=== PATIENT | male | born 1940 | race Caucasian/White ===

== ENCOUNTER 2017-08-01 16:36 | Observation (INO) ==
[2017-08-01] MEDS ORDERED: NS 1,000 ML IV ONE (16:56)
--- NOTE | 2017-08-01 17:02 | PROVIDER DOCUMENTATION ---
HPI-Abdominal Pain/GI Problem - General Chief Complaint: Nausea/Vomiting Stated Complaint: VOMITING AND FEVER CHEMO STARTED Time Seen by Provider: 08/01/17 16:41 Source: patient, family Allergies/Adverse Reactions: Patient Allergies Allergy/AdvReac Type Severity Reaction Status Date / Time No Known Allergies Allergy Verified 08/01/17 16:41 Home Medications: Home Medication List Medication Instructions Recorded Confirmed Last Taken Type Amlodipine Besylate/Benazepril 1 cap PO DAILY 10/07/15 10/07/15 10/07/15 History [Amlodipine-Benazepril 5-20 mg] Aspirin [Ecotrin] 81 mg PO DAILY 10/07/15 10/07/15 10/07/15 History BENAZEpril [Lotensin] 20 mg PO DAILY 10/07/15 10/07/15 10/07/15 History Glimepiride 4 mg PO DAILY 10/07/15 10/07/15 10/07/15 History Hydrochlorothiazide 12.5 mg PO DAILY 10/07/15 10/07/15 10/07/15 History Metformin [Glucophage] 500 mg PO BID 10/07/15 10/07/15 10/07/15 History Nortriptyline [Pamelor] 25 mg PO QHS 10/07/15 10/07/15 10/06/15 History Pantoprazole [Protonix] 40 mg PO DAILY 10/07/15 10/07/15 10/07/15 History Pioglitazone [Actos] 15 mg PO DAILY 10/07/15 10/07/15 10/07/15 History Simvastatin [Zocor] 20 mg PO DAILY 10/07/15 10/07/15 10/07/15 History Insulin Glargine [Lantus] 40 unit SUBQ QHS #0 insuln.pen 10/09/15 Unknown Rx Tramadol [Ultram] 50 mg PO Q6H PRN PRN #0 tablet 10/09/15 Unknown Rx - History of Present Illness-ABD Nature of Presenting Problems: patient is a 76 yo M that presents to the ER abdominal pain, fever/chills, n/v, and constipation for a few days. recent started chemo 3 days ago. unable to keep anything down. no diarrhea or cough. Abdominal Pain Onset Location: reports: generalized abdomen Quality of Pain: reports: aching, cramping Severity in ED: reports: moderate Onset/Duration: reports: abrupt, 3 days ago Timing: reports: still present, constant Activities at Onset: reports: other (CHEMO) Modifying Factors: improves with: nothing Associated Symptoms: reports: constipation, fever/chills, nausea, vomiting, weakness. denies: cough, diarrhea, EENT symptoms, genitourinary problems, shortness of breath Last BM: this morning Rectal Bleeding: reports: none Rectal Pain: reports: none Similar Symptoms Previously?: No Recently seen or treated by another doctor?: Yes Review of Systems - Adult - REVIEW OF SYSTEMS - ADULT Constitutional: reports: fever. denies: chills Eyes: denies: decreased vision, double vision Ears, Nose, Mouth & Throat: denies: ear discharge, ear pain, sinus problem, throat pain, throat swelling Cardiovascular: denies: chest pain, palpitations Respiratory: denies: cough, shortness of breath, wheezing Gastrointestinal: reports: abdominal pain, constipation, nausea, poor appetite, vomiting. denies: diarrhea, rectal bleeding Genitourinary: denies: dysuria, frequency, hematuria Musculoskeletal: reports: muscle weakness. denies: muscle aches Integumentary: reports: no symptoms reported Neurological: reports: no symptoms reported Psychiatric: reports: no symptoms reported Endocrine: reports: no symptoms reported Hematologic/Lymphatic: reports: no symptoms reported Allergic/Immunologic: reports: no symptoms reported All Other Systems: Reviewed and Negative Past History - Adult - PAST MEDICAL HISTORY-ADULT Review of Records: reports: Old Records Reviewed, Nursing Assessment Review, Medications Reviewed Cardiovascular: reports: HTN, hyperlipidemia Respiratory: reports: cancer (LUNG) Gastrointestinal: reports: GERD Endocrine/Immune: reports: Diabetes Other Conditions: reports: other cancer (skin) - PRIOR SURGERIES/PROCEDURES Surgical/Procedure History: reports: other (prostectomy, lobectomy) - IMMUNIZATION STATUS Childhood Immunizations: See Nurse Assessment Flu Vaccine: See Nurse Assessment - FAMILY HISTORY Family History: reviewed, not pertinent - SOCIAL HISTORY Smoking: quit greater than 1 year, cigarettes Living Situation: family Physical Exam-General - PHYSICAL EXAM-ADULT Initial Vital Signs Reviewed: Yes - CONSTITUTIONAL General Appearance: alert, no apparent distress - EYES Eyes: PERRL/EOMI, pink conjunctivae - HEAD, EARS, NOSE, MOUTH & THROAT HENMT: normocephalic/atraumatic, normal ENT inspection, TMs normal, other (dry oral mucosa) - NECK Neck: full range of motion, normal inspection - RESPIRATORY Respiratory: lungs clear, normal breath sounds, no respiratory distress, no accessory muscle use - CARDIOVASCULAR Cardiovascular: regular rate, rhythm, no gallop, no murmur - GASTROINTESTINAL (ABDOMEN) Abdominal Exam: normal bowel sounds, non tender, soft, no organomegaly, no pulsatile mass - MUSCULOSKELETAL Back Exam: no CVA tenderness, no vertebral tenderness Extremity: normal range of motion, normal inspection, no pedal edema - SKIN Integumentary: normal color, warm/dry - NEUROLOGIC Neurologic: grossly normal, no motor/sensory deficits - PSYCHIATRIC Psych/Mental Status: normal mood/affect, normal thought content, normal thought process, oriented x 3 Progress - PLAN OF CARE/RESULTS Progress/Plan/Lab Results: Vital Signs - 8 hr 08/01/17 16:38 Temperature 99.4 F Pulse Rate 98 H Respiratory Rate 20 Blood Pressure 151/087 O2 Sat by Pulse Oximetry 90 L Orders Category Date Time Status Saline Loc NOW Care 08/01/17 16:41 Active CHEST-2 VIEWS [RAD] Stat Exams 08/01/17 16:41 Ordered US ABDOMEN-COMPLETE [US] Stat Exams 08/01/17 16:56 Ordered AMYLASE [CHEM] Stat Lab 08/01/17 16:46 Ordered BLOOD CULTURE [BLDCUL] Stat Lab 08/01/17 16:41 Ordered CBC WITH DIFF [HEME] Stat Lab 08/01/17 16:41 Ordered COMPREHENSIVE METABOLIC PANEL [CHEM] Stat Lab 08/01/17 16:41 Ordered LACTATE, PLASMA [CHEM] Stat Lab 08/01/17 16:41 Ordered LIPASE [CHEM] Stat Lab 08/01/17 16:46 Ordered 0.9% Sodium Chloride Inj [Ns] 1,000 ml Med 08/01/17 16:56 Ordered IV 999 mls/hr Pulse Oximetry Stat Oth 08/01/17 16:41 Active Vital Signs - 24 hr 08/01/17 16:38 Temperature 99.4 F Pulse Rate 98 H Respiratory Rate 20 Blood Pressure 151/087 O2 Sat by Pulse Oximetry 90 L Orders Category Date Time Status Saline Loc NOW Care 08/01/17 16:41 Active CHEST-2 VIEWS [RAD] Stat Exams 08/01/17 16:41 Completed US ABDOMEN-COMPLETE [US] Stat Exams 08/01/17 16:56 Ordered AMYLASE [CHEM] Stat Lab 08/01/17 17:00 Completed BLOOD CULTURE [BLDCUL] Stat Lab 08/01/17 16:41 Ordered CBC WITH DIFF [HEME] Stat Lab 08/01/17 17:00 Completed COMPREHENSIVE METABOLIC PANEL [CHEM] Stat Lab 08/01/17 17:00 Completed LACTATE, PLASMA [CHEM] Stat Lab 08/01/17 17:17 Received LIPASE [CHEM] Stat Lab 08/01/17 17:00 Completed 0.9% Sodium Chloride Inj [Ns] 1,000 ml Med 08/01/17 17:15 Discontinued .ROUTE As Directed 0.9% Sodium Chloride Inj [Ns] 1,000 ml Med 08/01/17 16:56 Active IV 999 mls/hr Pulse Oximetry Stat Oth 08/01/17 16:41 Active Laboratory Tests 08/01/17 08/01/17 08/01/17 17:00 17:00 17:00 WBC 7.92 RBC 4.44 L Hgb 11.6 L Hct 35.2 L MCV 79.3 L MCH 26.1 L MCHC 33.0 RDW Std Deviation 17.2 H Plt Count 250 MPV 10.4 Immature Gran % (Auto) 0.1 Neut % (Auto) 82.1 H Lymph % (Auto) 14.9 L Carver % (Auto) 2.3 Eos % (Auto) 0.5 Baso % (Auto) 0.1 Immature Gran # (Auto) 0.01 Neut # (Auto) 6.50 Lymph # (Auto) 1.18 L Carver # (Auto) 0.18 Eos # (Auto) 0.04 Baso # (Auto) 0.01 Sodium 140 Potassium 3.1 L Chloride 99 Carbon Dioxide 29 Anion Gap 12 BUN 15 Creatinine 0.6 L Estimated GFR/1.73 m2 > 60 BUN/Creatinine Ratio 25 Glucose 218 H Calculated Osmolality 287 Calcium 7.9 L Total Bilirubin 0.50 AST 41 H ALT 46 H Alkaline Phosphatase 99 Total Protein 7.4 Albumin 3.4 L Globulin 4.0 Albumin/Globulin Ratio 1.0 Amylase 23 Lipase 14 Result Diagrams: 08/01/17 17:00 08/01/17 17:00 - XRAY 1 XRAY Study: Chest Impression: Abnormal XRAY Interpretation: surgical changes, right lower basilar pneumonia Departure - Departure Date of Disposition Decision: 08/01/17 Time of Disposition Decision: 17:44 DIAGNOSIS: Dehydration RLL pneumonia Qualifiers: Pneumonia type: due to unspecified organism Qualified Code(s): J18.1 - Lobar pneumonia, unspecified organism Disposition: ADMITTED INPATIENT 09 Certified Medical Emergency: Emergent Condition: Stable - Critical Care Note This patient required my direct & personal management of CC.: No Attestation - Physician/ JT Attestation The physician spent face to face time with patient:: Yes Advanced Practice Provider documentation review:: Supervising physician onsite and consulted in the evaluation and care of this patient. The physician did have a face to face encounter with the patient.
[2017-08-01] MEDS ORDERED: NS 1,000 ML ONE (17:15)
[2017-08-01 17:20] LABS: MANUAL DIFF NEEDED? NO
[2017-08-01 17:21] LABS: BASO% 0.1 % (0.0-0.8); EOS# 0.04 X1000 (0.0-0.7); EOS% 0.5 % (0.0-10.0); HEMATOCRIT 35.2 % (42.0-52.0); HEMOGLOBIN 11.6 g/dL (14.0-18.0); IMM GRAN# 0.01 X1000 (0.0-0.04); IMM GRAN% 0.1 % (0.0-0.5); LYMPH# 1.18 X1000 (1.2-3.4); LYMPH% 14.9 % (20.5-51.1); MCH 26.1 PG (27-31); MCV 79.3 FL (81-99); MONO# 0.18 X1000 (0.11-0.59); MONO% 2.3 % (1.7-9.3); MPV 10.4 FL (7.4-10.4); NEUT% 82.1 % (42.2-75.2); PLT 250 X1000 (130-400); RBC 4.44 XMIL (4.7-6.1)
[2017-08-01 17:36] LABS: AMYLASE 23 U/L (20-200); LIPASE 14 U/L (13-60)
--- NOTE | 2017-08-01 17:36 | Diag Imaging Result Doc PS360 ---
EXAM: CHEST-2 VIEWS HISTORY: cough TECHNIQUE: Two views COMPARISON: 03/24/2017 FINDINGS: There is now a right apical pleural thickening. An infiltrate has developed in the right base. Heart is not enlarged. The pulmonary vessels are not distended. I believe there are postsurgical changes on the left. IMPRESSION: Interval surgery since the prior exam with development of a right basilar pneumonia. Electronically signed by Gaudencio Brady 08/01/2017 5:34 PM
[2017-08-01 17:39] LABS: AGAP 12; ALBUMIN 3.4 g/dL (3.5-5.0); ALKALINE PHOSPHATASE 99 U/L (32-122); BUN 15 mg/dL (8-22); CALCIUM 7.9 mg/dL (8.8-10.2); CHLORIDE 99 mmol/L (98-107); COSMO 287; GOT 41 U/L (10-34); GPT 46 U/L (10-44); POTASSIUM 3.1 mmol/L (3.5-5.1); SODIUM 140 mmol/L (136-145); TCO2 29 mmol/L (25-35); TOTAL PROTEIN 7.4 g/dL (6.3-8.3)
[2017-08-01] MEDS ORDERED: ROCEPHIN 1 GM in NS 50 ML IV ONE ×2 (18:13→18:19)
[2017-08-01] MEDS ORDERED: ZITHROMAX PO ONE ×2 (18:13→18:19)
[2017-08-01] MEDS ORDERED: TYLENOL PO PRN (18:19)
[2017-08-01] MEDS ORDERED: ZOFRAN IV PRN (18:19)
--- NOTE | 2017-08-01 18:19 | Diag Imaging Result Doc PS360 ---
EXAM: US ABDOMEN-COMPLETE HISTORY: ABD PAIN TECHNIQUE: COMPARISON: None. FINDINGS: Normal aorta and inferior vena cava. The pancreas is obscured by overlying bowel gas. No focal hepatic abnormality. The common bile duct measures 2 mm. Normal gallbladder, no stones. The gallbladder wall is not thickened. Normal kidneys. No hydronephrosis. Spleen is not enlarged. No ascites. IMPRESSION: Normal abdominal ultrasound Electronically signed by Gaudencio Brady 08/01/2017 6:17 PM
[2017-08-01] MEDS: ROCEPHIN 1 GM in NS 50 ML IV SCH (19:01)
[2017-08-02] MEDS: NS 1,000 ML IV SCH (09:26)
[2017-08-02] MEDS: ZITHROMAX PO SCH (09:26)
[2017-08-02] MEDS: KLOR-CON PO SCH ×2 (09:26→20:52)
[2017-08-02] MEDS ORDERED: ROCEPHIN 1 GM in NS 50 ML IV ONE (09:34)
[2017-08-02] MEDS: ALBUTEROL NEB INH PRN ×2 (13:03→19:21)
[2017-08-02] MEDS ORDERED: ULTRAM PO PRN (18:00)
[2017-08-02] MEDS ORDERED: ZOCOR PO SCH (18:00)
[2017-08-02] MEDS ORDERED: PERCOCET-5 PO PRN (18:00)
[2017-08-02] MEDS ORDERED: ZOFRAN ODT PO PRN (18:00)
[2017-08-02] MEDS ORDERED: LANTUS INSULIN (PARKWAY) SUBQ PRN (18:00)
[2017-08-02] MEDS ORDERED: PHENERGAN PO PRN (18:00)
[2017-08-02] MEDS: ROCEPHIN 1 GM in NS 50 ML IV SCH (18:23)
[2017-08-02] MEDS: FLOMAX PO SCH (18:45)
[2017-08-02] MEDS: LOTENSIN PO SCH (18:45)
[2017-08-02] MEDS: REGLAN PO SCH (18:46)
[2017-08-02] MEDS: CARAFATE LIQUID PO SCH (20:53)
[2017-08-02] MEDS ORDERED: CYMBALTA PO SCH (21:00)
[2017-08-02] MEDS ORDERED: ASPIRIN EC PO SCH (21:00)
[2017-08-02] MEDS ORDERED: PROTONIX PO SCH (21:00)
[2017-08-02] MEDS ORDERED: AMARYL PO SCH (21:00)
[2017-08-03] MEDS: NS 1,000 ML IV SCH (00:01)
--- NOTE | 2017-08-03 07:00 | Diag Imaging Result Doc PS360 ---
EXAM: CHEST-2 VIEWS HISTORY: Possible Pnuemonia TECHNIQUE: Two views COMPARISON: 08/01/2017 FINDINGS: Interval worsening in the right basilar infiltrate. Heart is not enlarged. The pulmonary vessels are small. The lungs are well expanded. There is right apical pleural thickening. IMPRESSION: Worsening in the right basilar infiltrate. Electronically signed by Gaudencio Brady 08/03/2017 6:58 AM
[2017-08-03 07:36] VITALS: BP 155/71
[2017-08-03] MEDS: ALBUTEROL NEB INH PRN (07:45)
[2017-08-03] MEDS ORDERED: AMARYL PO SCH (08:00)
[2017-08-03] MEDS: KLOR-CON PO SCH (08:43)
[2017-08-03] MEDS: LOTENSIN PO SCH (08:43)
[2017-08-03] MEDS: REGLAN PO SCH (08:43)
[2017-08-03] MEDS: CARAFATE LIQUID PO SCH (08:43)
[2017-08-03] MEDS: FLOMAX PO SCH (08:43)
[2017-08-03] MEDS: ZITHROMAX PO SCH (08:44)
[2017-08-03 08:47] LABS: BASO% 0.1 % (0.0-0.8); EOS# 0.14 X1000 (0.0-0.7); HEMATOCRIT 32.9 % (42.0-52.0); HEMOGLOBIN 10.6 g/dL (14.0-18.0); IMM GRAN# 0.02 X1000 (0.0-0.04); IMM GRAN% 0.3 % (0.0-0.5); LYMPH# 1.25 X1000 (1.2-3.4); LYMPH% 18.2 % (20.5-51.1); MANUAL DIFF NEEDED? NO; MCH 25.7 PG (27-31); MCHC 32.2 g/dL (33-37); MCV 79.9 FL (81-99); MONO# 0.12 X1000 (0.11-0.59); MONO% 1.7 % (1.7-9.3); MPV 9.7 FL (7.4-10.4); NEUT% 77.7 % (42.2-75.2); PLT 229 X1000 (130-400); RBC 4.12 XMIL (4.7-6.1)
[2017-08-03] MEDS ORDERED: HYDROCHLOROTHIAZIDE PO SCH (18:00)
[2017-08-03] MEDS ORDERED: ZOCOR PO SCH (21:00)
--- NOTE | 2017-08-17 08:48 | HISTORY AND PHYSICAL ---
HISTORY OF PRESENT ILLNESS: The patient is a clinic patient of [facility], who presented to the emergency room complaining of generalized abdominal pain, fever, chills, nausea, vomiting, and constipation that has been associated with the recent institution of chemotherapy 3 days prior to his presentation. He has been unable to keep anything down but denies diarrhea or cough. He is being treated for lung cancer. He has had part of a lobe cut out of his right lung and was currently undergoing chemotherapy. His abdominal pain is generalized. It is described as aching and cramping and persistent moderately intense. It has been going on for 3 days. Nothing seems to improve it, and he has felt like he had fever, chills, nausea, vomiting, weakness. He denies a cough. He denies diarrhea. He is constipated. He denies ENT symptoms, symptoms, and shortness of breath. The last bowel movement was at presentation. He denies any bleeding. He is being followed by Dr. Rene, his oncologist. Vital signs in the ER: He had a temperature of 99.4 degrees, pulse was 98, respiratory rate 20, BP 151/87. His O2 saturation was 90%. As a long-standing history of COPD along with hypertension and diabetes. LABORATORY DATA: His white count was 7920. His hematocrit was 35.2, platelet count was 250,000. His differential was 82% polys and 15% lymphocytes. Sodium was 140, potassium 3.1, chloride 99, CO2 was 29. BUN was 15, creatinine was 0.6. GFR was greater than 60. BUN and creatinine ratio is 25, glucose 218. His total calcium was 7.9. Total bilirubin was 0.5. AST 41, ALT 46, alkaline phosphatase 99, total protein 74, albumin 3.4, globulin 4, and amylase is 23. Lipase was normal. His chest x-ray was abnormal. There were postop changes on his chest. He had right lower lobe basilar pneumonia suggested. So, he was admitted from the ER with dehydration, right lower lobe pneumonia, history of cancer of the lung, chronic obstructive pulmonary disease, diabetes, hypertension, prostate cancer. PREVIOUS SURGERIES: Prostatectomy and lobectomy. SOCIAL HISTORY: He quit smoking some years back but has a long-standing smoking history prior to that. He also has a history of hypertension, dyslipidemia. His recently . She had severe COPD. He lives with his daughter who is an ER nurse. REVIEW OF SYSTEMS: Constitutionally, he has felt like he had a fever. Denies any chills, rigors, night sweats. Eyes: No change in visual ceja. No irritation. Ears, nose, and throat: Denies any otitis, pharyngitis, or sinusitis. Cardiovascular: He denies any chest pain, palpitations, orthopnea, PND. Respiratory: He is always a bit wheezy and short of breath from his lung disease. Denies any increased cough or increased shortness of breath. GI: See present illness. : No dysuria, hematuria, or frequency. He has nocturia quite a bit. Musculoskeletal: No joint swelling or aching. No muscle problems. Skin negative. Neurological: He has no headache, syncope. Psychiatric: Negative. Endocrine: He has long-standing diabetes that has not been a significant problem for him. He has had no retinopathy. No particular neuropathy. Hematological: No clotting or bleeding disorder. No history of lymphadenopathy. ALLERGIES: He has no hayfever, asthma. PHYSICAL EXAMINATION: VITAL SIGNS: At the time of admission, temperature was 99.4 degrees. Pulse was 98 and respiratory rate 20. BP was 151/87. HEENT: Head normocephalic with male pattern baldness, temporal wasting a bit. Nares patent. Oropharynx negative. TMs intact. NECK: Supple. Bounding carotids without thyromegaly. Midline trachea. No thyromegaly. CHEST: He had increased AP diameter, diminished breath sounds. He is slightly tachypneic. Rhonchi throughout both lung ceja. CARDIOVASCULAR: He had a regular rhythm and rate. No murmurs, gallops, clicks, or rubs were appreciated. ABDOMEN: Soft, scaphoid. No hepatosplenomegaly. No CVA tenderness. EXTREMITIES: Negative for clubbing, cyanosis, or edema. NEUROLOGICAL: Exam was intact. ADMITTING DIAGNOSES: 1. Possible right lower lobe pneumonia. 2. Chronic obstructive pulmonary disease. 3. 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 4. Diabetes. 5. Hypertension. 6. Dyslipidemia. 7. History of prostate cancer. He was admitted for the possibility of right lower lobe basal pneumonia but it may be also related to his recent surgery. cc: Armando Valle MD
--- NOTE | 2017-08-17 08:52 | DISCHARGE SUMMARY ---
ADMISSION DATE: 08/01/2017 DISCHARGE DATE: 08/03/2017 HOSPITAL COURSE: The patient is a 76-year-old male who has a history of recent cancer of the lung and resection of part of the lobe of his right lung, and undergoing active chemotherapy beginning 3 days prior to his presentation. He presented with poor intake, nausea, vomiting, constipation, generalized belly pain, generalized weakness associated with a liver temp. In the ER, he had a possible right lower lobe infiltrate. He also has a background of hypertension and diabetes, prostate cancer, COPD. He was admitted to the hospital for evaluation of his pneumonia and treatment of his chemotherapy symptoms as well. His microbiology had blood culture done on admission that were negative. His laboratory data during his brief hospital stay showed that he was slightly anemic with a microcytic hypochromic indices and has a slight left shift. Platelet count is intact. Chemistries: When he admitted he had a sodium of 140, potassium 3.1, chloride 99, CO2 29, BUN 15, creatinine 0.6, GFR greater than 60. Glucose 218, calcium 7.9, total bilirubin 0.5, AST 41, ALT 46, total protein 7.4, albumin 3.4, globulin 4. His lipase and his amylase were normal. Plasma lactate was normal. On his imaging studies, he had a couple of chest x-rays done, both of which revealed right basilar infiltrate. The second film showed slight worsening of a right basilar infiltrate. Pulmonary vessels were small. Heart was not enlarged. Lungs were well expanded. There was right apical scarring and thickening. He also had an ultrasound of his abdomen with some generalized pain that he was experiencing. He had a normal aorta and inferior vena cava. Pancreas was not seen. No focal hepatic abnormalities. Common bile duct was 2 mm. Normal gallbladder. No stones. The gallbladder is not thickened. Normal kidneys, normal hydro. Spleen is not enlarged. No ascites. The patient was admitted to the hospital and he was given initially some fluid resuscitation with normal saline. He was started on azithromycin and ceftriaxone for the possibility of right lower lobe pneumonia and these were continued. He was treated symptomatically for nausea and pain as he requested. His diabetes was continued. His medicine while he was in the hospital was glimepiride. He seemed to not have any significant problems. During the brief stay, he was never febrile. He had a low-grade temp of 99.4 would be about as high as it got. We elected to discharge him and send him home on his routine medications he is currently taking. We continued him on Levaquin as a medication, and he is going to follow up in the office, either with me or with Dr. Rene, his oncologist. cc: Armando Valle MD
== END 2017-08-03 09:45 | disposition home or self-care (01) ==
LOC: P.MEDSURG 16:36 → P.ED 16:36
PROVIDERS: ATTEND Internal Medicine

== ENCOUNTER 2019-08-27 17:42 | Inpatient (IN) ==
[2019-08-27] MEDS ORDERED: ASPIRIN PO ONE (17:54)
[2019-08-27 18:31] LABS: BE 5.8 mmoll (-3.0-3.0); BLOOD TYPE ARTERIAL; HCO3-(ACT) 29.2 mmoll (20.0-26.0); METHB 1.6 % (0.0-1.5); O2(CT) 16.8 mL/dL (15.0-23.0); PCO2(98.6) 33 mmHg (35-45); PO2(98.6) 52 mmHg (60-100); SAMPLE BLOOD; SAO2 93.5 % (95.0-100.0); THB 13.4 g/dL (11.5-17.4); pH(98.6) 7.54 (7.35-7.45)
[2019-08-27 18:32] LABS: BASO# 0.01 X1000 (0.0-0.2); BASO% 0.1 % (0.0-0.8); HEMATOCRIT 41.7 % (42.0-52.0); HEMOGLOBIN 13.9 g/dL (14.0-18.0); IMM GRAN# 0.08 X1000 (0.0-0.04); IMM GRAN% 0.6 % (0.0-0.5); LYMPH# 0.93 X1000 (1.2-3.4); LYMPH% 6.8 % (20.5-51.1); MCH 28.3 PG (27-31); MCHC 33.3 g/dL (33-37); MCV 84.9 FL (81-99); MONO% 5.1 % (1.7-9.3); MPV 10.7 FL (7.4-10.4); NEUT# 11.98 X1000 (1.4-6.5); NEUT% 87.4 % (42.2-75.2); PLT 195 X1000 (130-400); RBC 4.91 XMIL (4.7-6.1); RDW 14.3 % (11.5-14.5)
[2019-08-27 18:35] LABS: INR 1.07; PROTIME 14.5 Seconds (11.0-16.0); PTT 36.9 Seconds (22.3-41.8)
[2019-08-27 18:35] LABS: ALLEN TEST YES; MODALITY CANNULA; O2HB 89.2 % (95.0-99.0)
--- NOTE | 2019-08-27 18:39 | Diag Imaging Result Doc PS360 ---
EXAM: CHEST-PORTABLE HISTORY: sob TECHNIQUE: Chest single view COMPARISON: 08/25/2019 FINDINGS: Interval development of right basilar infiltrates. No cardiomegaly. No pulmonary edema. Tiny left effusion. IMPRESSION: Right-sided pneumonia. Electronically signed by Gaudencio Brady 08/27/2019 6:36 PM
[2019-08-27 18:41] LABS: AGAP 25; ALBUMIN 4.4 g/dL (3.5-5.0); ALKALINE PHOSPHATASE 102 U/L (32-122); BUN 26 mg/dL (8-22); CALCIUM 9.6 mg/dL (8.8-10.2); CHLORIDE 90 mmol/L (98-107); COSMO 283; CREATININE 0.9 mg/dL (0.7-1.2); ESTIMATED GFR > 60; GLUCOSE 354 mg/dL (70-104); GOT 28 U/L (10-34); GPT 18 U/L (10-44); POTASSIUM 3.4 mmol/L (3.5-5.1); SODIUM 132 mmol/L (136-145); TCO2 17 mmol/L (25-35); TOTAL PROTEIN 8.4 g/dL (6.3-8.3)
--- NOTE | 2019-08-27 18:44 | EKG Report ---
Test Performed on : 08/27/2019 5:57:02 PM Test Reason : chest pain Blood Pressure : / mmHG Vent. Rate : 111 BPM Atrial Rate : 111 BPM P-R Int : 192 ms QRS Dur : 140 ms QT Int : 374 ms P-R-T Axes : 000 025 072 degrees QTc Int : 508 ms Sinus tachycardia. Nonspecific intraventricular block Abnormal ECG When compared with ECG of 07-OCT-2015 23:19, No significant change was found Unconfirmed Result
[2019-08-27 18:46] LABS: CK PROFILE 257 U/L (24-204)
[2019-08-27] MEDS ORDERED: LEVAQUIN 750 MG/D5W 750 MG/150 ML IVPB IV ONE (18:53)
[2019-08-27 19:18] LABS: CK INDEX 3.7 (0.0-2.5); CK-MB 9.46 ng/mL (0.0-5.0)
--- NOTE | 2019-08-27 19:47 | PROVIDER DOCUMENTATION ---
This chart was entered by Lesley Bennett Scribe, acting as scribe for Helio Delong MD. HPI-Respiratory General - General Chief Complaint: Chest Pain Stated Complaint: CHEST PAIN / SOB Time Seen by Provider: 08/27/19 18:01 Source: patient Allergies/Adverse Reactions: Patient Allergies Allergy/AdvReac Type Severity Reaction Status Date / Time No Known Allergies Allergy Verified 08/01/17 16:41 Home Medications: Home Medication List Medication Instructions Recorded Confirmed Last Taken Type Aspirin [Ecotrin] 81 mg PO HS 10/07/15 08/02/17 10/07/15 History Glimepiride 4 mg PO BID 10/07/15 08/02/17 10/07/15 History Pantoprazole [Protonix] 40 mg PO HS 10/07/15 08/02/17 10/07/15 History Simvastatin [Zocor] 20 mg PO DAILY 10/07/15 08/02/17 10/07/15 History Benazepril/Hydrochlorothiazide 20 - 25 mg PO DAILY 08/01/17 08/02/17 Unknown Hi story [Benazepril-Hctz 20-25 mg Tab] Metoclopramide [Reglan] 10 mg PO DAILY 08/01/17 08/02/17 Unknown History Ondansetron HCl 4 mg PO Q6H PRN PRN 08/01/17 08/02/17 Unknown History Oxycodone HCl/Acetaminophen 1 dose Q6H PRN PRN 08/01/17 08/01/17 Unknown History [Oxycodone-Acetaminophen 5-325] Sucralfate [Carafate] 1 dose PO BID 08/01/17 08/02/17 Unknown History Cholecalciferol (Vit D3) [Vitamin 1,000 unit PO DAILY 08/02/17 08/02/17 Unknown History D3] Cyanocobalamin (Vitamin B-12) 1 tab PO DAILY 08/02/17 08/02/17 Unknown History [Vitamin B12] Duloxetine [Cymbalta] 60 mg PO QHS 08/02/17 08/02/17 Unknown History Insulin Glargine [Lantus] See Protocol SUBQ QHS 08/02/17 08/02/17 Unknown History Multivitamin [Multivitamins] 1 each PO DAILY 08/02/17 08/02/17 Unknown History Promethazine [Phenergan] 25 mg PO Q6H PRN PRN 08/02/17 08/02/17 Unknown History Tamsulosin [Flomax] 0.4 mg PO DAILY 08/02/17 08/02/17 Unknown History Tramadol [Ultram] 50 mg PO Q6H PRN PRN 08/02/17 08/02/17 Unknown History Zinc 15 mg PO DAILY 08/02/17 08/02/17 Unknown History - History of Present Illness-Resp Nature of Presenting Problem: pt is a 78 yr old male presenting wit 2 day complaint of increasing shortness of breath, pleurisy, orthopnea and intermittent fever. pt also complains of nausea at this time. pt admits he was seen by PCP (Leonard) 2 days ago and received his flu vaccine at that time. pt admits no improvement with at home neb tx. Quality of Pain: reports: sharp, tightness Severity in ED: reports: moderate Onset/Duration: reports: 2 days ago Timing: reports: changing over time, getting worse Exposure: reports: unknown cause Cough Quality/Degree: reports: mild, dry cough Episode Frequency: occasional episodes Current Respiratory Medication Therapy: Initiated albuterol (neb tx) Modifying Factors: improves with: exertion (worsens), albuterol nebulizer (no improvement), lying down (worsens) Associated Symptoms: reports: cough, fever/chills, shortness of breath Similar Symptoms Previously?: Yes Recently seen or treated by another doctor?: Yes Review of Systems - Adult - REVIEW OF SYSTEMS - ADULT Constitutional: reports: chills, fever, fatique Eyes: reports: no symptoms reported Ears, Nose, Mouth & Throat: denies: ear pain, sinus problem, throat pain Cardiovascular: reports: chest pain, orthopnea. denies: palpitations, syncope Respiratory: reports: chronic cough, dyspnea on exertion, pleurisy, shortness of breath Gastrointestinal: reports: nausea. denies: abdominal pain, vomiting Genitourinary: reports: no symptoms reported Musculoskeletal: reports: no symptoms reported Integumentary: reports: no symptoms reported Neurological: denies: dizziness/vertigo, headache/migraines Psychiatric: reports: no symptoms reported Endocrine: reports: no symptoms reported Hematologic/Lymphatic: reports: no symptoms reported Allergic/Immunologic: reports: no symptoms reported All Other Systems: Reviewed and Negative Past History - Adult - PAST MEDICAL HISTORY-ADULT Review of Records: reports: Old Records Reviewed, Nursing Assessment Review, Medications Reviewed, Social history reviewed & non-contributory. Major Childhood Illnesses: reports: denies history Cardiovascular: reports: HTN, hyperlipidemia Respiratory: reports: cancer (LUNG) Gastrointestinal: reports: GERD Obstetrical/Gynecological: reports: denies history Genitourinary: reports: denies history Musculoskeletal: reports: denies history Neurological: reports: denies history Endocrine/Immune: reports: Diabetes Other Conditions: reports: other cancer (skin) - PRIOR SURGERIES/PROCEDURES Surgical/Procedure History: reports: other (prostectomy, lobectomy) - IMMUNIZATION STATUS Childhood Immunizations: See Nurse Assessment Flu Vaccine: See Nurse Assessment - FAMILY HISTORY Family History: reviewed, not pertinent - SOCIAL HISTORY Smoking: quit greater than 1 year (10+ yrs) Substance Use: denies Living Situation: family Physical Exam-General - PHYSICAL EXAM-ADULT Initial Vital Signs Reviewed: Yes - CONSTITUTIONAL General Appearance: alert, no apparent distress - EYES Eyes: PERRL/EOMI - HEAD, EARS, NOSE, MOUTH & THROAT HENMT: normocephalic/atraumatic, moist mucous membranes, normal ENT inspection - NECK Neck: non-tender, full range of motion, supple, normal inspection - RESPIRATORY Respiratory: chest non-tender, decreased breath sounds (right), rales (coarse rales, right) - CARDIOVASCULAR Cardiovascular: normal peripheral pulses, tachycardia - GASTROINTESTINAL (ABDOMEN) Abdominal Exam: normal bowel sounds, non tender, soft - LYMPHATIC Lymphatic: no adenopathy - MUSCULOSKELETAL Back Exam: normal inspection, no CVA tenderness, no vertebral tenderness Extremity: normal range of motion, non-tender, normal inspection - SKIN Integumentary: normal color, normal turgor, warm/dry - NEUROLOGIC Neurologic: grossly normal - PSYCHIATRIC Psych/Mental Status: normal mood/affect Progress - PLAN OF CARE/RESULTS Progress/Plan/Lab Results: Vital Signs - 8 hr 08/27/19 17:47 08/27/19 18:30 08/27/19 19:37 Temperature 98 F 99.2 F Pulse Rate 112 H 110 H 106 H Respiratory Rate 18 22 18 Blood Pressure 158/86 127/68 124/72 O2 Sat by Pulse Oximetry 94 L 96 95 Laboratory Results - last 24 hr 08/27/19 08/27/19 08/27/19 18:00 18:00 18:00 WBC 13.70 H RBC 4.91 Hgb 13.9 L Hct 41.7 L MCV 84.9 MCH 28.3 MCHC 33.3 RDW Std Deviation 14.3 Plt Count 195 MPV 10.7 H Immature Gran % (Auto) 0.6 H Neut % (Auto) 87.4 H Lymph % (Auto) 6.8 L [place] % (Auto) 5.1 Eos % (Auto) 0.0 Baso % (Auto) 0.1 Immature Gran # (Auto) 0.08 H Neut # (Auto) 11.98 H Lymph # (Auto) 0.93 L [place] # (Auto) 0.70 H Eos # (Auto) 0.00 Baso # (Auto) 0.01 Segmented Neutrophils Not Reportable PT INR PTT (Actin FS) Specimen Type Sample Site pH pCO2 pO2 HCO3 Base Excess Oxyhemoglobin ABG O2 Sat (Calculated) ABG O2 Saturation ABG Carboxyhemoglobin ABG Methemoglobin [place] Test A-a O2 Difference Total Hemoglobin Lactate Liter Flow Blood Gas Modality FiO2 % Sodium 132 L Potassium 3.4 L Chloride 90 L Carbon Dioxide 17 L Anion Gap 25 BUN 26 H Creatinine 0.9 Estimated GFR/1.73 m2 > 60 BUN/Creatinine Ratio 29 Glucose 354 H Calculated Osmolality 283 Calcium 9.6 Total Bilirubin 0.80 AST 28 ALT 18 Alkaline Phosphatase 102 Creatine Kinase 257 H Creatine Kinase Index 3.7 H CK-MB (CK-2) 9.46 H Troponin T Tzv-[id number]-Kqzobcagdeo Pept 1211 H Total Protein 8.4 H Albumin 4.4 Globulin 4.0 Albumin/Globulin Ratio 1.0 Plasma Lactate 08/27/19 08/27/19 08/27/19 18:00 18:00 18:00 WBC RBC Hgb Hct MCV MCH MCHC RDW Std Deviation Plt Count MPV Immature Gran % (Auto) Neut % (Auto) Lymph % (Auto) [place] % (Auto) Eos % (Auto) Baso % (Auto) Immature Gran # (Auto) Neut # (Auto) Lymph # (Auto) [place] # (Auto) Eos # (Auto) Baso # (Auto) Segmented Neutrophils PT 14.5 INR 1.07 PTT (Actin FS) 36.9 Specimen Type Sample Site pH pCO2 pO2 HCO3 Base Excess Oxyhemoglobin ABG O2 Sat (Calculated) ABG O2 Saturation ABG Carboxyhemoglobin ABG Methemoglobin [place] Test A-a O2 Difference Total Hemoglobin Lactate Liter Flow Blood Gas Modality FiO2 % Sodium Potassium Chloride Carbon Dioxide Anion Gap BUN Creatinine Estimated GFR/1.73 m2 BUN/Creatinine Ratio Glucose Calculated Osmolality Calcium Total Bilirubin AST ALT Alkaline Phosphatase Creatine Kinase Creatine Kinase Index CK-MB (CK-2) Troponin T < 0.010 Ebs-[id number]-Zstfmleqnqe Pept Total Protein Albumin Globulin Albumin/Globulin Ratio Plasma Lactate 3.3 H 08/27/19 18:09 WBC RBC Hgb Hct MCV MCH MCHC RDW Std Deviation Plt Count MPV Immature Gran % (Auto) Neut % (Auto) Lymph % (Auto) [place] % (Auto) Eos % (Auto) Baso % (Auto) Immature Gran # (Auto) Neut # (Auto) Lymph # (Auto) [place] # (Auto) Eos # (Auto) Baso # (Auto) Segmented Neutrophils PT INR PTT (Actin FS) Specimen Type ARTERIAL Sample Site L RADIAL pH 7.54 H pCO2 33 L pO2 52 L HCO3 29.2 H Base Excess 5.8 H Oxyhemoglobin 89.2 L* ABG O2 Sat (Calculated) 16.8 ABG O2 Saturation 93.5 L ABG Carboxyhemoglobin 3.00 H ABG Methemoglobin 1.6 H [place] Test YES A-a O2 Difference 106.0 Total Hemoglobin 13.4 Lactate 1.60 Liter Flow 2.0 Blood Gas Modality CANNULA FiO2 % 28.0 Sodium Potassium Chloride Carbon Dioxide Anion Gap BUN Creatinine Estimated GFR/1.73 m2 BUN/Creatinine Ratio Glucose Calculated Osmolality Calcium Total Bilirubin AST ALT Alkaline Phosphatase Creatine Kinase Creatine Kinase Index CK-MB (CK-2) Troponin T Odp-D-Mwsuxelsgwb Pept Total Protein Albumin Globulin Albumin/Globulin Ratio Plasma Lactate Orders Category Date Time Status Cardiac Monitoring DIRECTED Care 08/27/19 17:54 Active IV Insertion ORDERED Care 08/27/19 19:42 Ordered Oxygen Therapy- ED Nursing DIRECTED Care 08/27/19 17:54 Active Saline Loc NOW Care 08/27/19 17:54 Active CHEST-PORTABLE [RAD] Stat Exams 08/27/19 18:10 Completed ABG [RESP] Routine Lab 08/27/19 18:09 Completed BLOOD CULTURE [BLDCUL] Stat Lab 08/27/19 18:39 Ordered CBC WITH ELECTRONIC DIFF [HEME] Stat Lab 08/27/19 18:00 Completed CK PROFILE [SP CHEM] Stat Lab 08/27/19 18:00 Completed COMPREHENSIVE METABOLIC PANEL [CHEM] Stat Lab 08/27/19 18:00 Completed D-DIMER [COAG] Stat Lab 08/27/19 19:40 Ordered LACTATE, PLASMA [CHEM] Q3H Lab 08/27/19 19:45 Uncollected LACTATE, PLASMA [CHEM] Q3H Lab 08/27/19 22:45 Uncollected LACTATE, PLASMA [CHEM] Q3H Lab 08/28/19 01:45 Uncollected LACTATE, PLASMA [CHEM] Stat Lab 08/27/19 18:00 Completed PRO B-NATRIURETIC PEPTIDE Stat Lab 08/27/19 18:00 Completed PROTIME WITH INR [COAG] Stat Lab 08/27/19 18:00 Completed PTT [COAG] Stat Lab 08/27/19 18:00 Completed TROPONIN T Stat Lab 08/27/19 18:00 Completed Aspirin Med 08/27/19 17:54 Discontinued 325 mg PO NOW ONE Levofloxacin 750 mg/D5w [Levaquin 750 mg/D5w] Med 08/27/19 18:53 Active 750 mg in 150 ml IV NOW CP/SOB/Palp >45 yrs of Age Stat Oth 08/27/19 17:54 Ordered EKG [EKG] Stat Ther 08/27/19 17:54 Draft patient has history of CHF who is unable to tolerate boluses of IV fluids which will worsen his condition Result Diagrams: 08/27/19 18:00 08/27/19 18:00 - EKG 1 Time of EKG reading by physician:: 17:57 EKG Read and Signed by:: Helio Delong EKG Interpretation (*Must complete 3 of following elements*): Abnormal Rate: 111 Rhythm: sinus tach [employer]: normal QRS: NSIVCD [place] Interval: normal ST Wave: non-specific ST changes - CONSULTS/PCP/HOSPITALIST Notification #1 *Consult/PCP/Hospitalist*: Dr. Valle Time Discussed: 19:15 Reason/Comments: request admit to [facility], out of town Consult Disposition: Admit #2 Consult: Dr. Cope, hospitalist Time Discussed: 19:30 Consult Disposition: Admit Departure - Departure Date of Disposition Decision: 08/27/19 Time of Disposition Decision: 19:47 DIAGNOSIS: Lactic acidosis RLL pneumonia Qualifiers: Pneumonia type: due to unspecified organism Qualified Code(s): J18.1 - Lobar pneumonia, unspecified organism Disposition: ADMITTED INPATIENT 09 Certified Medical Emergency: Emergent Condition: Stable Referrals and Follow-Ups: Armando Valle MD [Primary Care Provider] - - Critical Care Note This patient required my direct & personal management of CC.: No Attestation - Physician/ JT Attestation Patient care was provided by Advanced Practice Provider:: No The physician spent face to face time with patient:: Yes Advanced Practice Provider documentation review:: Supervising physician onsite and consulted in the evaluation and care of this patient. The physician did have a face to face encounter with the patient. This chart was documented by the indicated scribe, (Lesley Bennett Scribe) and accurately reflects the services I performed and decisions made by me, Helio Delong MD, as attested by the provider's signature.
[2019-08-27] MEDS ORDERED: HUMULIN R (PARKWAY) SUBQ ONE (19:51)
[2019-08-27] MEDS: LEVAQUIN 750 MG/D5W 750 MG/150 ML IVPB IV SCH (21:39)
[2019-08-27] MEDS ORDERED: PNEUMOVAX 23 IM ONE (22:01)
[2019-08-27] MEDS: TYLENOL PO PRN (22:24)
[2019-08-27] MEDS ORDERED: ATIVAN PO ONE (22:29)
[2019-08-27] MEDS: DUONEB (A & A) INH SCH (23:19)
[2019-08-28 00:29] LABS: BILIRUBIN URINE NEGATIVE (NEGATIVE); BLOOD URINE 2+ (NEGATIVE); CLARITY CLEAR (CLEAR); COLOR YELLOW; KETONE URINE TRACE mg/dL (NEGATIVE); LEUKOCYTES URINE NEGATIVE (NEGATIVE); NITRITE URINE NEGATIVE (NEGATIVE); PROTEIN URINE 2+(100 mg/dL) mg/dL (NEGATIVE); SP GRAVITY URINE 1.015; URINE BACTERIA 1+ /HFP; URINE EPITHELIAL CELLS <10 /HPF (<10); URINE SOURCE CLEAN CATCH; URINE WBC <10 /HPF (<10); UROBILINOGEN URINE 1 mg/dL
[2019-08-28] MEDS: DUONEB (A & A) INH SCH ×2 (04:06→06:58)
[2019-08-28] MEDS ORDERED: DUONEB (A & A) INH PRN (08:54)
[2019-08-28] MEDS ORDERED: CARDIZEM IV ONE (08:57)
[2019-08-28] MEDS: XOPENEX NEB INH SCH ×3 (08:59→21:23)
[2019-08-28] MEDS: ATROVENT NEB INH SCH ×3 (08:59→21:23)
--- NOTE | 2019-08-28 09:31 | EKG Report ---
Test Performed on : 08/28/2019 08:33:41 AM Test Reason : HEART CHANGES Blood Pressure : / mmHG Vent. Rate : 134 BPM Atrial Rate : 170 BPM P-R Int : 000 ms QRS Dur : 126 ms QT Int : 350 ms P-R-T Axes : 000 058 103 degrees QTc Int : 522 ms Atrial fibrillation. with rapid ventricular response. with premature ventricular or aberrantly conduc adelina complexes. Nonspecific intraventricular block T wave abnormality, consider inferolateral ischemia Abnormal ECG When compared with ECG of 27-AUG-2019 17:57, (Unconfirmed) Atrial fibrillation. has replaced Sinus rhythm. ST more depressed in Inferior leads ST now depressed in Anterior leads T wave amplitude has increased in Anterior leads Confirmed by Armando Valle MD ([id number]) on 09/05/2019 7:52:55 AM
[2019-08-28 10:10] LABS: AGAP 15; ALBUMIN 3.3 g/dL (3.5-5.0); ALKALINE PHOSPHATASE 83 U/L (32-122); BUN 26 mg/dL (8-22); CALCIUM 8.8 mg/dL (8.8-10.2); CHLORIDE 93 mmol/L (98-107); CK PROFILE 151 U/L (24-204); COSMO 280; CREATININE 0.8 mg/dL (0.7-1.2); ESTIMATED GFR > 60; GLUCOSE 250 mg/dL (70-104); GOT 19 U/L (10-34); GPT 14 U/L (10-44); MAGNESIUM 1.6 mg/dL (1.5-2.7); POTASSIUM 2.9 mmol/L (3.5-5.1); SODIUM 133 mmol/L (136-145); TCO2 25 mmol/L (25-35); TOTAL PROTEIN 7.4 g/dL (6.3-8.3)
[2019-08-28] MEDS ORDERED: LOVENOX SUBQ SCH ×2 (11:00→19:30)
[2019-08-28] MEDS ORDERED: CARDIZEM 125 MG/D5W 125 MG/125 ML IVPB IV SCH (11:05)
[2019-08-28] MEDS: ROBITUSSIN-AC PO PRN ×2 (11:28→16:18)
[2019-08-28] MEDS: PROTONIX PO SCH (11:28)
[2019-08-28] MEDS: HUMALOG (PARKWAY) SUBQ SCH ×3 (11:28→20:50)
[2019-08-28] MEDS: POTASSIUM CHLORIDE 20 MEQ/SWI 20 MEQ/100 ML IVPB IV SCH ×2 (12:44→15:10)
[2019-08-28] MEDS: NS 1,000 ML IV SCH (13:00)
--- NOTE | 2019-08-28 13:05 | Diag Imaging Result Doc PS360 ---
EXAM: CT ANGIOGRM PULMONARY ARTERIES HISTORY: elevated ddimer, dyspnea TECHNIQUE: CT chest with intravenous contrast. Pulmonary arterial protocol with MIP images. COMPARISON: 03/27/2017 FINDINGS: Trace pleural fluid. No cardiomegaly. No aortic aneurysm or dissection. Postsurgical changes on the left. Normal opacification of the pulmonary arteries and their branches. There are dense infiltrates in the right lower lobe with smaller infiltrates in the right middle lobe and left lung base. There is scarring in the right apex stable tiny nodule in the apex of the left lower lobe. There are prominent upper mediastinal nodes, right hilar nodes, and subcarinal nodes. These have developed since the prior exam. IMPRESSION: 1.Pneumonia most pronounced in the right lower lobe 2.No pulmonary emboli 3.Left upper lobectomy 4.Trace pleural fluid 5.Emphysema 6.Development of moderately-sized lymph nodes This exam was performed using automated exposure control, adjustment of mA or kV according to patient size, and/or use of iterative reconstruction technique. Electronically signed by Gaudencio Brady 08/28/2019 1:02 PM
--- NOTE | 2019-08-28 13:33 | HISTORY AND PHYSICAL ---
ADDENDUM: I saw the patient [id number] and fully agree with the assessment and plan of nurse practitioner, Rhianna Tim. This is an 78-year-old gentleman who was admitted to the hospital with right lower lobe pneumonia, but was also found to have atrial fibrillation with RVR and has hypokalemia. We are going to check his magnesium levels as well and replenish his electrolytes. He is being moved to intensive care unit because we have initiated him on IV diltiazem drip. He will be started on broad-spectrum antibiotics and supportive care. cc: Taisha Oleary MD
--- NOTE | 2019-08-28 14:13 | HISTORY AND PHYSICAL ---
CHIEF COMPLAINT: Chest pain, shortness of breath. 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 He presents to the emergency room complaining of chest pain and shortness of breath along with orthopnea that has been present for 2 days. Of note, he did receive a flu shot just prior to the symptoms beginning. He denied any syncope or dizziness, a productive cough, any palpitations. PAST MEDICAL HISTORY: 1. Squamous cell carcinoma status post chemotherapy and lobectomy. 2. Diabetes mellitus type 2. 3. Hypertension. 4. Dyslipidemia. 5. History of prostate cancer. 6. COPD. PAST SURGICAL HISTORY: Lobectomy, prostatectomy. SOCIAL HISTORY: He is a . He lives with his daughter who is an ER nurse. He denies any alcohol or illicit drug use. He does not smoke. FAMILY HISTORY: Positive for coronary artery disease in his father, hypertension and diabetes in his grandparents. REVIEW OF SYSTEMS: Discussed with the patient with pertinent positives stated in the HPI. He denied any syncope or dizziness, any palpitations, a productive cough, any hemoptysis, any nausea, vomiting, diarrhea, constipation, black or bloody vomitus or stools, any hematuria, dysuria, frequency, urgency. PHYSICAL EXAMINATION: GENERAL: This is an 78-year-old gentleman who is lying on the bed on the [facility] floor in no distress. VITAL SIGNS: Blood pressure is 133/55 with a heart rate of 89, respirations 18, temperature is 98.7 degrees oral with O2 saturations that are 94 to 96 percent on 2 L nasal cannula. HEENT: Pupils are equal, round, react to light. EOMs are intact. Sclerae anicteric. Head is normocephalic, atraumatic. Mucous membranes are moist. NECK: Supple with trachea midline. CARDIOVASCULAR: Irregularly irregular rate and rhythm, S1, S2 appreciated. No murmur. No JVD. He has no lower extremity edema. Calves are nontender bilateral with peripheral pulses palpable x4 extremities. PULMONARY: Breath sounds are clear with no increased work of breathing noted. He does have a slightly prolonged expiratory phase. Chest rises and falls symmetric with respiration. GASTROINTESTINAL: Abdomen soft, nontender, nondistended with bowel sounds in all 4 quadrants. : No CVA or suprapubic tenderness. SKIN: Warm and dry. NEUROLOGIC: He is alert and oriented. LABS: WBC is 13 with hemoglobin 13.9, hematocrit 41.7 and platelets of 195,000. D-dimer is 1.33. Sodium 132, potassium 3.4, BUN 26, creatinine 0.9 with a glucose of 354. Troponins are negative. Urinalysis has 10 to 20 microscopic red blood cells, 2+ blood. Blood cultures are pending. Chest x-ray reveals right-sided pneumonia. No pulmonary edema. No cardiomegaly. ASSESSMENT AND PLAN: 1. Right lower lobe pneumonia. Blood cultures were obtained in the emergency room. He was given Levaquin which will continue and further antibiotics will be culture driven. 2. Leukocytosis likely secondary to #1 as stated above. 3. Elevated D-dimer. Will obtain a CTA pulmonary as well as a bilateral lower extremity Doppler. 4. New onset of atrial fibrillation, rapid ventricular response. The patient will be moved to ICU placed. Will continue telemetry. We will start him on Cardizem drip per protocol. Get an echocardiogram. Start Lovenox 1 mg/kg. 5. Acute hypoxic respiratory failure. Supplemental oxygen. 6. Chronic obstructive pulmonary disease. Duo nebs q.2 hours p.r.n. with Xopenex and Atrovent q.6 hours when awake. Start incentive spirometer every 4 hours per respiratory therapy. 7. Diabetes mellitus type 2. Pattern blood glucose with sliding scale insulin. 8. History of prostate cancer now with lower urinary tract symptoms. Will continue his Flomax. 9. Hypertension. We will monitor vital signs and treat accordingly. 10. Hyperlipidemia. Continue his Zocor. 11. Will check a TSH. Will continue to trend his troponin and cardiac profile. 12. Plan was discussed with Dr. Oleary. Further treatments pending hospital course. Dictated by MICHOACANO Rg for Taisha Oleary MD cc: MICHOACANO Rg MD
--- NOTE | 2019-08-28 14:47 | Vascular Study Report ---
EXAM: Venous U/S Bilateral Legs HISTORY: elevated ddimer, afib TECHNIQUE: Bilateral lower extremity venous Doppler ultrasound COMPARISON: None. FINDINGS: Right: There is good flow and compressibility of the veins of the right lower extremity. No thrombus. Left: There is good flow and compressibility in the veins of the left lower extremity. No thrombus. IMPRESSION: No deep venous thrombosis within either lower extremity identified. Electronically signed by Gaudencio Brady 08/28/2019 2:44 PM
--- NOTE | 2019-08-28 19:15 | ECHO REPORT ---
ORDER DATE: 08/28/2019 MEASUREMENTS: Septal thickness 1.2, left ventricular internal diameter in diastole 4.2, left ventricular posterior wall thickness 1.2, aortic root 3.5, left atrium 4.3. SUMMARY: 1. Adequate quality study. 2. The aortic valve is trileaflet and opens normally on 2-dimensional images. The peak gradient across aortic valve is 12 mmHg. Mitral, tricuspid and pulmonic valves are without evidence of structural abnormality, with mild mitral regurgitation, mild tricuspid regurgitation and trace pulmonic insufficiency. The estimated systolic PA pressure by Doppler is 55 mmHg, suggesting moderate pulmonary hypertension. The aortic root is normal in size. 3. Normal left ventricular chamber size with mild concentric left ventricular hypertrophy is demonstrated. Estimated left ventricular ejection fraction appears to be at least 65%. No regional wall motion abnormalities are evident. Left atrium is mildly enlarged. The right atrium and right ventricle are normal in size with grossly preserved right ventricular systolic function. 4. Tiny posterior pericardial effusion demonstrated. 5. Appearance of the inferior vena cava suggests normal central venous pressure. cc: MD Nirali Vasquez CRNP
[2019-08-28] MEDS: ZOCOR PO SCH (20:42)
[2019-08-28] MEDS: MELATONIN PO SCH (20:42)
[2019-08-28] MEDS: CYMBALTA PO SCH (20:42)
[2019-08-28] MEDS: LEVAQUIN 750 MG/D5W 750 MG/150 ML IVPB IV SCH (20:43)
[2019-08-29] MEDS: ATROVENT NEB INH SCH ×4 (04:59→21:22)
[2019-08-29] MEDS: XOPENEX NEB INH SCH ×4 (04:59→21:23)
[2019-08-29] MEDS: PROTONIX PO SCH (06:57)
[2019-08-29] MEDS: HUMALOG (PARKWAY) SUBQ SCH ×4 (06:58→21:28)
[2019-08-29 07:10] LABS: BASO# 0.02 X1000 (0.0-0.2); BASO% 0.2 % (0.0-0.8); EOS# 0.02 X1000 (0.0-0.7); EOS% 0.2 % (0.0-10.0); HEMATOCRIT 31.2 % (42.0-52.0); HEMOGLOBIN 10.2 g/dL (14.0-18.0); IMM GRAN# 0.07 X1000 (0.0-0.04); IMM GRAN% 0.7 % (0.0-0.5); LYMPH# 0.92 X1000 (1.2-3.4); LYMPH% 8.7 % (20.5-51.1); MCH 27.9 PG (27-31); MCHC 32.7 g/dL (33-37); MCV 85.2 FL (81-99); MONO# 0.85 X1000 (0.11-0.59); MPV 10.8 FL (7.4-10.4); NEUT% 82.2 % (42.2-75.2); PLT 193 X1000 (130-400); RBC 3.66 XMIL (4.7-6.1); RDW 14.1 % (11.5-14.5); WBC 10.58 X1000 (4.8-10.8)
[2019-08-29 07:19] LABS: AGAP 9; ALKALINE PHOSPHATASE 89 U/L (32-122); BUN 25 mg/dL (8-22); CALCIUM 8.4 mg/dL (8.8-10.2); CHLORIDE 99 mmol/L (98-107); COSMO 279; CREATININE 0.7 mg/dL (0.7-1.2); ESTIMATED GFR > 60; GLUCOSE 217 mg/dL (70-104); GOT 17 U/L (10-34); GPT 14 U/L (10-44); POTASSIUM 3.1 mmol/L (3.5-5.1); SODIUM 134 mmol/L (136-145); TCO2 26 mmol/L (25-35); TOTAL PROTEIN 6.7 g/dL (6.3-8.3)
[2019-08-29] MEDS ORDERED: CARDIZEM PO SCH (08:30)
[2019-08-29] MEDS: VITAMIN D PO SCH (08:40)
[2019-08-29] MEDS: THERA M PLUS PO SCH (08:40)
[2019-08-29] MEDS: FLOMAX PO SCH (08:40)
[2019-08-29] MEDS: FOLIC ACID PO SCH (08:40)
[2019-08-29] MEDS: KLOR-CON PO SCH ×2 (08:40→20:02)
[2019-08-29] MEDS: VITAMIN B-12 PO SCH (08:40)
[2019-08-29] MEDS: MIRALAX PO SCH (08:40)
[2019-08-29] MEDS ORDERED: ASPIRIN EC PO SCH (09:00)
[2019-08-29] MEDS ORDERED: KLOR-CON PO ONE (10:06)
--- NOTE | 2019-08-29 10:08 | EKG Report ---
Test Performed on : 08/29/2019 07:26:42 AM Test Reason : heart changes Blood Pressure : / mmHG Vent. Rate : 087 BPM Atrial Rate : 087 BPM P-R Int : 208 ms QRS Dur : 140 ms QT Int : 400 ms P-R-T Axes : 048 033 062 degrees QTc Int : 481 ms Normal sinus rhythm. Nonspecific intraventricular block Cannot rule out Septal infarct (cited on or before 29-AUG-2019) Abnormal ECG When compared with ECG of 29-AUG-2019 07:25, (Unconfirmed) premature ventricular complexes. are no longer present premature atrial complexes. are no longer present QRS axis shifted left Confirmed by Armando Valle MD ([id number]) on 09/05/2019 7:52:01 AM
[2019-08-29] MEDS: NS 1,000 ML IV SCH ×3 (10:30→20:00)
--- NOTE | 2019-08-29 10:48 | PROGRESS NOTE ---
DATE: 08/29/2019 SUBJECTIVE: The patient denies having any acute complaints, and feels good this morning. OBJECTIVE: Vital Signs: Temperature 98.9 degrees, pulse 88 per minute, respiratory rate 17 per minute, blood pressure 150/75, pulse oximetry 99% on 2 L of oxygen via nasal cannula. General: The patient is alert and oriented x3. Does not appear to be in any acute distress. Cardiovascular: First and second heart sounds are audible without any murmurs or gallops. Respiratory: Bilateral lung air entry is moderately decreased, but there are no rales or rhonchi present on auscultation. Gastrointestinal: Abdomen is soft and nondistended. Normal bowel sounds are present. DIAGNOSTIC DATA: CBC done this morning showed a hemoglobin of 10.2 and hematocrit 31.2. In comparison, his hemoglobin and hematocrit were 13.9 and 41.7 two days ago, on 08/27/2019. Rest of the CBC is nondiagnostic. Comprehensive metabolic panel done this morning showed a potassium level of 3.1. Glucose levels were found to be 217. Rest of the comprehensive metabolic panel is nondiagnostic. IMPRESSION: 1. Right lower lobe pneumonia. 2. Paroxysmal atrial fibrillation, currently in sinus rhythm. 3. Type 2 diabetes mellitus. 4. Hypokalemia. 5. Anemia. PLAN: The patient has been staying in the ICU since yesterday because of atrial fibrillation with RVR, but that has now resolved and he is in sinus rhythm. His condition has improved, and therefore we are going to move him back to medical/surgical floor on telemetry. He does have paroxysmal atrial fibrillation, and therefore I am going to start him on Eliquis 2.5 mg orally twice daily, and discontinue enoxaparin. He has received some diltiazem, but that has been now discontinued, and he has been started on metoprolol 25 mg orally twice daily. He does have hypokalemia, for which potassium supplementation will be done. Will monitor his electrolytes, and replenish his electrolytes accordingly. He will continue with levofloxacin 750 mg IV every day, and keep giving him lispro insulin as per sliding scale for his glucose control. His hemoglobin and hematocrit have dropped since admission, and we are going to keep an eye on that to make sure he does not have any further drop in hemoglobin and hematocrit. Further recommendations to be given as per hospital course. cc: Taisha Oleary MD
[2019-08-29] MEDS: LOPRESSOR PO SCH ×2 (11:32→20:03)
[2019-08-29] MEDS: TYLENOL PO PRN (14:14)
[2019-08-29] MEDS: LEVAQUIN 750 MG/D5W 750 MG/150 ML IVPB IV SCH (20:00)
[2019-08-29] MEDS: CYMBALTA PO SCH (20:01)
[2019-08-29] MEDS: ELIQUIS PO SCH (20:02)
[2019-08-29] MEDS: ZOCOR PO SCH (20:03)
[2019-08-29] MEDS: MELATONIN PO SCH (20:03)
[2019-08-30] MEDS: ATROVENT NEB INH SCH ×5 (04:22→22:52)
[2019-08-30] MEDS: XOPENEX NEB INH SCH ×5 (04:22→22:52)
[2019-08-30] MEDS: NS 1,000 ML IV SCH ×2 (05:31→17:30)
--- NOTE | 2019-08-30 06:12 | Diag Imaging Result Doc PS360 ---
EXAM: CHEST-PORTABLE HISTORY: Pneumonia TECHNIQUE: Chest single view COMPARISON: 08/27/2019 FINDINGS: There are dense infiltrates in the mid and lower right lung. Worsening infiltrates in the left base. There is also small left pleural effusion. No cardiomegaly. IMPRESSION: Interval worsening Electronically signed by Gaudencio Brady 08/30/2019 6:10 AM
[2019-08-30 06:36] LABS: BASO# 0.01 X1000 (0.0-0.2); BASO% 0.1 % (0.0-0.8); EOS# 0.08 X1000 (0.0-0.7); EOS% 0.8 % (0.0-10.0); HEMATOCRIT 33.9 % (42.0-52.0); HEMOGLOBIN 10.9 g/dL (14.0-18.0); IMM GRAN# 0.16 X1000 (0.0-0.04); IMM GRAN% 1.6 % (0.0-0.5); LYMPH# 0.89 X1000 (1.2-3.4); MCH 27.5 PG (27-31); MCHC 32.2 g/dL (33-37); MCV 85.6 FL (81-99); MONO# 0.98 X1000 (0.11-0.59); MONO% 9.9 % (1.7-9.3); MPV 10.5 FL (7.4-10.4); NEUT# 7.82 X1000 (1.4-6.5); NEUT% 78.6 % (42.2-75.2); PLT 210 X1000 (130-400); RBC 3.96 XMIL (4.7-6.1); RDW 14.2 % (11.5-14.5); WBC 9.94 X1000 (4.8-10.8)
[2019-08-30] MEDS: PROTONIX PO SCH (06:40)
[2019-08-30] MEDS: ZOSYN 3.375 GM in NS 50 ML IV SCH ×3 (06:40→17:30)
[2019-08-30] MEDS: ULTRAM PO PRN ×2 (06:48→21:10)
[2019-08-30] MEDS: ATIVAN PO PRN ×2 (06:48→21:11)
[2019-08-30] MEDS: HUMALOG (PARKWAY) SUBQ SCH ×4 (06:55→21:12)
[2019-08-30 06:56] LABS: AGAP 11; BUN 28 mg/dL (8-22); CHLORIDE 107 mmol/L (98-107); COSMO 290; CREATININE 0.7 mg/dL (0.7-1.2); ESTIMATED GFR > 60; GLUCOSE 195 mg/dL (70-104); SODIUM 140 mmol/L (136-145); TCO2 22 mmol/L (25-35)
[2019-08-30] MEDS: MIRALAX PO SCH (08:45)
[2019-08-30] MEDS: ELIQUIS PO SCH ×2 (08:50→21:10)
[2019-08-30] MEDS: DOXYCYCLINE PO SCH ×2 (08:50→21:10)
[2019-08-30] MEDS: VITAMIN B-12 PO SCH (08:51)
[2019-08-30] MEDS: FOLIC ACID PO SCH (08:51)
[2019-08-30] MEDS: THERA M PLUS PO SCH (08:51)
[2019-08-30] MEDS: FLOMAX PO SCH (08:51)
[2019-08-30] MEDS: KLOR-CON PO SCH (08:51)
[2019-08-30] MEDS: LOPRESSOR PO SCH ×2 (08:51→21:11)
[2019-08-30] MEDS: VITAMIN D PO SCH (08:52)
[2019-08-30 09:20] LABS: BANDS 3 % (0-1); EOS 2 % (1-10); LYMPHS 10 % (21-51); MONO 10 % (1-9); SEGS 75 % (42-75)
[2019-08-30] MEDS: MELATONIN PO SCH (21:10)
[2019-08-30] MEDS: TYLENOL PO PRN (21:11)
[2019-08-30] MEDS: CYMBALTA PO SCH (21:12)
[2019-08-30] MEDS: ZOCOR PO SCH (21:12)
--- NOTE | 2019-08-30 22:35 | PROGRESS NOTE ---
DATE: 08/30/2019 SUBJECTIVE: The patient is still having lots of cough and congestion. Notes that he is coughing up more stuff. Denies any fevers, chills. Has not really been out of bed. PHYSICAL EXAM: Temperature 97.9, pulse 71, respiratory rate 18, BP 143/71.General: Patient is awake. Currently, he is in no respiratory distress, but he is lying in bed propped up at 30 degrees. HEENT: Normocephalic. Neck: Supple. Cardiovascular: Regular rate. No murmurs. Chest: Decreased but equal breath sounds. No current crackles, no wheezing. Abdomen: Soft. Extremities: Moves all extremities. Neurologic: No changes. ASSESSMENT: 1. Right lower lobe pneumonia. 2. Left lower lobe pneumonia appears worse on recent chest x-ray. 3. Paroxysmal atrial fibrillation. 4. Type 2 diabetes. 5. Hypokalemia. 6. Anemia. 7. Leukocytosis, improved. 8. Hypertension. PLAN: We are going to change to Zosyn and doxycycline from Levaquin as he appears to be worse on his recent chest x-ray and he is having increased cough. I am going to add incentive spirometry and chest percussion therapy. We will replace his potassium. Further orders as needed. cc: Jason Cope MD
[2019-08-31] MEDS: ZOSYN 3.375 GM in NS 50 ML IV SCH ×4 (00:20→19:55)
[2019-08-31] MEDS: XOPENEX NEB INH SCH ×4 (06:11→19:59)
[2019-08-31] MEDS: ATROVENT NEB INH SCH ×4 (06:11→19:58)
[2019-08-31] MEDS ORDERED: LASIX IV ONE (06:18)
[2019-08-31] MEDS: PROTONIX PO SCH ×2 (06:29→06:51)
[2019-08-31] MEDS: HUMALOG (PARKWAY) SUBQ SCH ×5 (06:33→21:01)
--- NOTE | 2019-08-31 07:16 | Diag Imaging Result Doc PS360 ---
EXAM: CHEST-PORTABLE - 08/31/2019 HISTORY: increased wheezing TECHNIQUE: Portable chest COMPARISON: 08/30/2019 FINDINGS: There are bilateral infiltrates, most prominent on the right. These appear mildly increased compared to prior. There are stable small left pleural effusion. There is no pneumothorax identified. Heart size appears normal. IMPRESSION: Mild increase in bilateral infiltrates. Electronically signed by Wilfredo Umanzor 08/31/2019 7:14 AM
[2019-08-31 08:26] LABS: AGAP 8; BUN 28 mg/dL (8-22); CALCIUM 9.1 mg/dL (8.8-10.2); CHLORIDE 102 mmol/L (98-107); COSMO 289; CREATININE 0.8 mg/dL (0.7-1.2); ESTIMATED GFR > 60; GLUCOSE 246 mg/dL (70-104); SODIUM 138 mmol/L (136-145); TCO2 28 mmol/L (25-35)
[2019-08-31] MEDS: NS 1,000 ML IV SCH ×3 (11:13→20:15)
[2019-08-31] MEDS: DOXYCYCLINE PO SCH (11:15)
[2019-08-31] MEDS: FOLIC ACID PO SCH (11:16)
[2019-08-31] MEDS: ELIQUIS PO SCH ×2 (11:16→20:59)
[2019-08-31] MEDS: FLOMAX PO SCH (11:16)
[2019-08-31] MEDS: THERA M PLUS PO SCH (11:17)
[2019-08-31] MEDS: MIRALAX PO SCH (11:17)
[2019-08-31] MEDS: LOPRESSOR PO SCH ×2 (11:17→20:59)
[2019-08-31] MEDS: VITAMIN D PO SCH (11:18)
[2019-08-31] MEDS: VITAMIN B-12 PO SCH (11:18)
[2019-08-31] MEDS ORDERED: VANCOMYCIN IV PER PHARMACY MISC SCH (12:45)
[2019-08-31] MEDS ORDERED: VANCOMYCIN 2,000 MG in NS 500 ML IV ONE (14:00)
--- NOTE | 2019-08-31 14:33 | PROGRESS NOTE ---
DATE: 08/31/2019 SUBJECTIVE: Patient reports still having cough, mild congestion as well. No shortness of breath at rest. OBJECTIVE: Vitals: Temperature 97.4 degrees, heart rate 89, respiratory rate 24, blood pressure 136/69, O2 saturation 98% on 3 L nasal cannula. General: This is a chronically ill-appearing 78- year-old male lying in bed in no acute distress. Cardiovascular: S1, S2 heard. No murmurs, gallops or rubs. Regular rate and rhythm. Respiratory: Coarse breath sounds noted in both pulmonary bases. Patient not using any accessory muscles or having work of breathing. Abdomen: Soft, nontender to palpation. Bowel sounds present. No organomegaly. Extremities: No clubbing, cyanosis or edema. Peripheral pulses present in both legs. Neurological: Patient is alert and oriented x3. Moves 4 extremities. LABORATORY DATA: Reviewed. ASSESSMENT AND PLAN: 1. Right lower lobe pneumonia. 2. Left lower lobe pneumonia. 3. Paroxysmal atrial fibrillation. 4. Diabetes mellitus type 2. 5. Hypokalemia. 6. Anemia chronic disease. 7. Hypertension. PLAN: At this point we have changed antibiotics to Zosyn yesterday and changing doxycycline to vancomycin today. Will continue with breathing treatments and pulmonary toilet as well. For paroxysmal atrial fibrillation heart rate is well controlled, patient is also receiving breathing treatments as needed. At this point will continue with same management. Blood pressure is under control, will continue with same medication. cc: Danny Mendez MD
[2019-08-31] MEDS: CYMBALTA PO SCH (20:59)
[2019-08-31] MEDS: ZOCOR PO SCH (21:00)
[2019-08-31] MEDS: MELATONIN PO SCH (21:00)
[2019-08-31] MEDS: ATIVAN PO PRN (21:01)
[2019-09-01] MEDS: ZOSYN 3.375 GM in NS 50 ML IV SCH ×4 (01:30→19:12)
[2019-09-01] MEDS: XOPENEX NEB INH SCH ×4 (05:32→19:41)
[2019-09-01] MEDS: ATROVENT NEB INH SCH ×4 (05:32→19:41)
[2019-09-01 05:58] LABS: AGAP 12; BUN 28 mg/dL (8-22); CALCIUM 8.7 mg/dL (8.8-10.2); CHLORIDE 102 mmol/L (98-107); COSMO 289; CREATININE 0.7 mg/dL (0.7-1.2); ESTIMATED GFR > 60; GLUCOSE 213 mg/dL (70-104); POTASSIUM 3.4 mmol/L (3.5-5.1); SODIUM 139 mmol/L (136-145); TCO2 24 mmol/L (25-35)
[2019-09-01 06:24] LABS: BASO# 0.05 X1000 (0.0-0.2); BASO% 0.5 % (0.0-0.8); EOS# 0.55 X1000 (0.0-0.7); EOS% 5.5 % (0.0-10.0); HEMOGLOBIN 10.5 g/dL (14.0-18.0); IMM GRAN# 0.58 X1000 (0.0-0.04); IMM GRAN% 5.8 % (0.0-0.5); LYMPH# 1.23 X1000 (1.2-3.4); LYMPH% 12.4 % (20.5-51.1); MCH 28.9 PG (27-31); MCHC 33.9 g/dL (33-37); MCV 85.4 FL (81-99); MONO# 0.94 X1000 (0.11-0.59); MONO% 9.5 % (1.7-9.3); MPV 10.5 FL (7.4-10.4); NEUT# 6.58 X1000 (1.4-6.5); NEUT% 66.3 % (42.2-75.2); PLT 256 X1000 (130-400); RBC 3.63 XMIL (4.7-6.1); RDW 14.8 % (11.5-14.5); WBC 9.93 X1000 (4.8-10.8)
[2019-09-01 06:34] LABS: EOS 5 % (1-10); LYMPHS 15 % (21-51); MONO 10 % (1-9); SEGS 70 % (42-75)
[2019-09-01] MEDS: PROTONIX PO SCH (07:29)
[2019-09-01] MEDS: HUMALOG (PARKWAY) SUBQ SCH ×4 (07:30→20:40)
[2019-09-01] MEDS: MIRALAX PO SCH (08:30)
[2019-09-01] MEDS: LOPRESSOR PO SCH ×2 (08:32→20:40)
[2019-09-01] MEDS: VITAMIN D PO SCH (08:32)
[2019-09-01] MEDS: VITAMIN B-12 PO SCH (08:32)
[2019-09-01] MEDS: FOLIC ACID PO SCH (08:33)
[2019-09-01] MEDS: THERA M PLUS PO SCH (08:33)
[2019-09-01] MEDS: ELIQUIS PO SCH ×2 (08:33→20:39)
[2019-09-01] MEDS: FLOMAX PO SCH (08:33)
[2019-09-01] MEDS: TYLENOL PO PRN ×2 (12:10→19:12)
--- NOTE | 2019-09-01 13:39 | PROGRESS NOTE ---
DATE: 09/01/2019 SUBJECTIVE: The patient reports having less cough, walking around but is still a little bit short of breath. OBJECTIVE: Vital Signs: Temperature 98.5, heart rate 79, respiratory rate 20, blood pressure 158/56, O2 saturation 96% on 3 L nasal cannula. General Examination: This is a chronically ill- appearing 78-year-old male lying in bed, in no acute distress. Cardiovascular Exam: S1 and S2 heard. No murmurs, gallops, or rubs. Regular rate and rhythm. Respiratory Examination: Coarse breath sounds are present in both pulmonary bases. The patient is not using any accessory muscles or having work of breathing. Abdomen: Soft, nontender to palpation. Bowel sounds present. No organomegaly. Extremities: No clubbing, cyanosis, or edema. Peripheral pulses present in both legs. Neurological Examination: The patient is alert and oriented x3. Moves 4 extremities. LABORATORY DATA: Reviewed. ASSESSMENT AND PLAN: 1. Acute hypoxemic respiratory failure. 2. Right lower lobe pneumonia. 3. Paroxysmal atrial fibrillation. 4. Diabetes mellitus type 2. 5. Anemia of chronic disease. 6 .Hypertension. PLAN: At this point, we have changed antibiotics (2 days ago) to vancomycin and Zosyn. Since then, the patient clinically reports feeling fine, less cough, less shortness of breath. Planning to continue with both antibiotics. Will continue checking CBC and CMP daily. As mentioned before, clinically he is doing fine. I am planning to do 1 ABG tomorrow and see how his gas exchange tomorrow. If he continues to feel better, will plan to discharge him in the next 24-48 hours most likely. The patient agreed with the plan. For paroxysmal atrial fibrillation, will continue with beta-blockers. Will continue with sliding scale insulin and Ac cu-Cheks before meals and at bedtime for diabetes, and hypertension is well-controlled. cc: Danny Mendez MD
[2019-09-01] MEDS: VANCOMYCIN 1,800 MG in NS 500 ML IV SCH (15:24)
[2019-09-01] MEDS: CYMBALTA PO SCH (20:39)
[2019-09-01] MEDS: MELATONIN PO SCH (20:40)
[2019-09-01] MEDS: ZOCOR PO SCH (20:41)
[2019-09-01] MEDS: ULTRAM PO PRN (20:42)
[2019-09-01] MEDS: ATIVAN PO PRN (20:53)
[2019-09-02] MEDS: ATROVENT NEB INH SCH ×4 (00:25→15:18)
[2019-09-02] MEDS: XOPENEX NEB INH SCH ×4 (00:25→15:18)
[2019-09-02] MEDS: ZOSYN 3.375 GM in NS 50 ML IV SCH ×3 (00:50→12:26)
[2019-09-02 06:16] LABS: BASO# 0.04 X1000 (0.0-0.2); BASO% 0.5 % (0.0-0.8); EOS# 0.29 X1000 (0.0-0.7); EOS% 3.3 % (0.0-10.0); HEMOGLOBIN 9.9 g/dL (14.0-18.0); IMM GRAN# 0.39 X1000 (0.0-0.04); IMM GRAN% 4.5 % (0.0-0.5); LYMPH# 1.33 X1000 (1.2-3.4); LYMPH% 15.3 % (20.5-51.1); MCH 27.4 PG (27-31); MCHC 31.9 g/dL (33-37); MCV 85.9 FL (81-99); MONO# 0.61 X1000 (0.11-0.59); MPV 10.1 FL (7.4-10.4); NEUT# 6.02 X1000 (1.4-6.5); NEUT% 69.4 % (42.2-75.2); PLT 262 X1000 (130-400); RBC 3.61 XMIL (4.7-6.1); RDW 14.9 % (11.5-14.5); WBC 8.68 X1000 (4.8-10.8)
[2019-09-02 06:17] LABS: BE 5.5 mmoll (-3.0-3.0); BLOOD TYPE ARTERIAL; HCO3-(ACT) 29.2 mmoll (20.0-26.0); O2(CT) 14.4 mL/dL (15.0-23.0); O2HB 94.2 % (95.0-99.0); PCO2(98.6) 42 mmHg (35-45); PO2(98.6) 73 mmHg (60-100); SAMPLE BLOOD; THB 10.8 g/dL (11.5-17.4); pH(98.6) 7.46 (7.35-7.45)
[2019-09-02 06:22] LABS: ALLEN TEST YES; MODALITY CANNULA
[2019-09-02 06:27] LABS: AGAP 10; BUN 24 mg/dL (8-22); CALCIUM 8.5 mg/dL (8.8-10.2); CHLORIDE 104 mmol/L (98-107); COSMO 288; CREATININE 0.7 mg/dL (0.7-1.2); ESTIMATED GFR > 60; GLUCOSE 180 mg/dL (70-104); POTASSIUM 3.4 mmol/L (3.5-5.1); SODIUM 140 mmol/L (136-145); TCO2 26 mmol/L (25-35)
[2019-09-02] MEDS: HUMALOG (PARKWAY) SUBQ SCH ×2 (06:57→12:35)
[2019-09-02] MEDS: PROTONIX PO SCH (06:58)
[2019-09-02] MEDS ORDERED: KLOR-CON PO ONE (08:04)
[2019-09-02] MEDS: THERA M PLUS PO SCH (09:31)
[2019-09-02] MEDS: MIRALAX PO SCH (09:31)
[2019-09-02] MEDS: VITAMIN B-12 PO SCH (09:31)
[2019-09-02] MEDS: FLOMAX PO SCH (09:31)
[2019-09-02] MEDS: VITAMIN D PO SCH (09:31)
[2019-09-02] MEDS: FOLIC ACID PO SCH (09:31)
[2019-09-02] MEDS: ELIQUIS PO SCH (09:31)
[2019-09-02] MEDS: LOPRESSOR PO SCH (09:32)
[2019-09-02] MEDS: TYLENOL PO PRN (11:22)
[2019-09-02] MEDS: VANCOMYCIN 1,800 MG in NS 500 ML IV SCH (13:36)
[2019-09-02 16:51] VITALS: BP 161/42
--- NOTE | 2019-09-03 07:09 | DISCHARGE SUMMARY ---
ADMISSION DATE: 08/27/2019 DISCHARGE DATE: 09/02/2019 ADMISSION DIAGNOSES: 1. Atrial fibrillation with rapid ventricular response, rate 134, new onset. 2. Right lower lobe pneumonia. 3. Leukocytosis. 4. Elevated D-dimer. 5. Acute hypoxemic respiratory failure. 6. Chronic obstructive pulmonary disease exacerbation. 7. Diabetes mellitus type 2. 8. Hypertension. 9. History of prostate cancer. 10. Hyperlipidemia. DISCHARGE DIAGNOSES: 1. Acute hypoxemic respiratory failure. 2. Right lower lobe pneumonia. 3. Paroxysmal atrial fibrillation. 4. Diabetes mellitus type 2. 5. Anemia of chronic disease. 6. Hypertension. CONSULTS: Case Management, Palliative and Supervisor Line Department. SURGICAL HISTORY AND PROCEDURES: None. HOSPITAL COURSE: Mr. 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 Patient was found to have pneumonia, atrial fibrillation with RVR, was transferred to the ICU on a Cardizem drip and given Levaquin and doxycycline, vancomycin and Zosyn for pneumonia. He presented with elevated D- dimer, but negative for PE, DVT or thrombus. Had converted to normal sinus rhythm overnight, was transferred to the floor off of Cardizem drip and on metoprolol. Eventually he was able to move around, walk more, chest x-rays were clearing and had resolution of pneumonia. DISCHARGE VITAL SIGNS: Temperature 97.8 degrees, heart rate 93, respiratory rate 17, blood pressure 157/72, O2 saturation 95% on 2 L. DISCHARGE LAB DATA: White blood cells 8000, hemoglobin 9, hematocrit 31, platelet count 262,000. Sodium 140, potassium 3.4, BUN 24, creatinine 0.7, glucose 180. ABGs, pH 7.46, pCO2 42, PO2 73, bicarb 29. Blood cultures negative. PERTINENT IMAGING: Chest x-ray, right-sided pneumonia, this was on the . On the echocardiogram, mild MR, mild TR, trace pulmonic insufficiency, systolic pulmonary artery hypertension with a systolic pressure of 55 mmHg, normal LV function at 65%, tiny posterior pericardial effusion, normal CVP. On the , lower extremity Dopplers were negative for DVT. On the pulmonary arteriogram, pneumonia most pronounced in the right lower lobe, no pulmonary emboli, left upper lobectomy, tiny pleural effusion, emphysema, and development of moderate size lymph nodes. On the chest x-ray, interval worsening. On the chest x- ray, mild increase in bilateral infiltrates. EKG on the , sinus tachycardia at 111. Repeat on the of the EKG, atrial fibrillation with RVR, rate 134. EKG on the , normal sinus rhythm, rate 87. DISCHARGE MEDICATIONS: 1. Cefdinir 300 mg p.o. twice daily for 10 days. 2. Xopenex inhaled every 6 hours as needed. 3. Simvastatin 20 mg p.o. daily. 4. Vitamin D 1000 units p.o. daily. 5. Vitamin B12, 2500 mcg p.o. daily. 6. Protonix 40 mg p.o. daily. 7. Pioglitazone 30 mg p.o. daily. 8. Multivitamin 1 tablet p.o. daily. 9. MiraLAX 17 g p.o. daily. 10. Melatonin 10 mg p.o. nightly. 11. Folic acid 0.8 mg p.o. daily. 12. Flomax 0.4 mg p.o. daily. 13. Aspirin enteric-coated 81 mg p.o. daily. 14. Benazepril hydrochlorothiazide 1 tablet p.o. daily. 15. Lantus 45 units subcutaneous nightly. 16. Cymbalta 90 mg p.o. nightly. DISCHARGE PHYSICIAN FOLLOWUP: Dr. Armando Valle in 2 weeks. DISCHARGE INSTRUCTIONS: If her condition changes, contact physician and/or return to the emergency department. Changes may include, but are not limited to shortness of breath, increased fatigue, excessive bleeding, unexplained weight loss or gain, unmanageable pain, signs or symptoms of infection. ACTIVITY: As tolerated. DIET: An 1800 ADA calorie diet. DISCHARGE DISPOSITION: Home. Dictated by MICHOACANO Rowley for Danny Mendez MD Addendum: Patient seen and examined by myself. Agree with MICHOACANO note. It reflects my assessment and plan. Patient is being discharged in stable condition to home. Will be seen by PCP in a week. cc: MICHOACANO Rowley MD [facility]
== END 2019-09-02 16:40 | disposition home or self-care (01) | DRG 193 ==
LOC: P.ED 17:42 → SUATTDRO 17:43 → P.MEDSURG 20:20 → P.ICU 08-28 11:04 → P.MEDSURG 08-29 12:59
PROVIDERS: ATTEND Internal Medicine